=== PATIENT | male | born 1950 | race Caucasian/White ===

== ENCOUNTER 2017-12-13 16:31 | Inpatient (IN) | payer OTHER, SELFPAY ==
[2017-12-13] VITALS (8 sets, daily range): BP systolic 111–123; BP diastolic 58–87; PULSE 71–90; RESP 12–18; TEMP 36.8; O2SAT 94–98; BMI 22.3; BMI 20.9
--- NOTE | 2017-12-13 16:50 | EKG12_ITS ---
Test Reason : GENERAL ILLNESS Blood Pressure : / mmHG Vent. Rate : 074 BPM Atrial Rate : 074 BPM P-R Int : 194 ms QRS Dur : 096 ms QT Int : 396 ms P-R-T Axes : 066 -28 041 degrees QTc Int : 439 ms Normal sinus rhythm Normal ECG Confirmed by TAYA HANEY, MARKUS ([id number]), photography editor PAVITHRA ZAMORA ([id number]) on 12/16/2017 1:56:22 PM Referred By: VIANEY Confirmed By:MARKUS BAIN MD
--- NOTE | 2017-12-13 16:50 | RAD_ITS ---
STUDY: X-RAY CHEST REASON FOR EXAM: Male, 67 years old. Flulike symptoms. TECHNIQUE: Frontal and lateral views of the chest. COMPARISON: None. FINDINGS: The lungs are hyperexpanded. There are coarsened interstitial markings suggestive of mild chronic fibrosis. Multifocal infiltrates seen in the left lower lung zones. No gross effusions. Normal size heart. Normal mediastinum and kale. Normal visualized pulmonary arteries. Normal visualized aortic arch and descending thoracic aorta. Normal visualized thoracic spine. Normal visualized ribs, clavicles, and shoulders. There is no demonstrated abnormality of the visualized soft tissue structures of the upper abdomen. RAD/Chest PA and Lateral IMPRESSION: COPD with mild fibrosis. Infiltrates in the lower left lung. Electronically Signed: En Serrano MD at 17:42 EDT , Service support ,
--- NOTE | 2017-12-13 16:51 | ED.VISSUMM ---
- ER Visit Summary Date of Service: 12/13/17 Chief Complaint: Weakness History of Present Illness: The patient is a 67 M who states that about 1-1/2 weeks ago he got sick with the flu. He states he woke with a sore throat, feeling run down, and generalized body aches. He developed fever. Denies any vomiting or diarrhea. He states he has not had a bowel movement for several days but states he has not been eating anything. He states he feels somewhat short of breath particularly with exertion. He notes a slight cough but is not coughing anything up. He notes no rashes. No recent insect bites. Denies any headache. He notes dark urine. He denies any significant medical problems and is currently undergoing treatment for. He has had prior appendectomy, cholecystectomy, inguinal hernia ?2, and a hiatal hernia surgery. He sees Lizzie Robison for primary care Physical Examination: Afebrile vital signs are stable Gen: Well-nourished well-developed patient appears weak and ill. Head: Normocephalic atraumatic Eyes: Perrl EOMI ENT: TMs clear no rhinorrhea moist mucous membranes Neck: Supple no lymphadenopathy no JVD nontender CVS: Regular rate rhythm no murmurs normal S1-S2 Respiratory: No distress clear to auscultation bilaterally chest nontender Abdomen: Soft nontender nondistended normal bowel sounds no masses Back: Nontender Extremity: Nontender no edema Skin: Normal color no rash skin turgor Neuro: alert orientated ?3 CN II-XII intact normal strength sensation Psych: Normal affect normal mood Test Results: Labs look surprisingly well for the patient. Chest x-ray is consistent with a left lower lobe infiltrate. CT the abdomen pelvis demonstrated moderate stool. There was an enlarged adrenal gland. Emergency Department Course and Treatment: Lab and radiologic findings were discussed with family. He is received IV fluids Rocephin and azithromycin were given after blood cultures. Patient appears quite ill despite fairly normal laboratory studies. Her plan will be admission to the hospital. Impression: 1. Pneumonia 2. Constipation 3. Enlarged adrenal gland This note was generated with [employer] dictation software. It may contain incorrect words, spelling, and punctuation that were not noted in review of the chart prior to signing ED Disposition - Plan for ED Patient: Disposition: Acute Care [facility] Chief Complaint: General Illness
[2017-12-13] MEDS: 0.9% Normal Saline 1,000 ML 1000 ML IV (17:16)
[2017-12-13 17:19] LABS: Absolute Lymphocyte Count 0.88 X10^3/ul (0.83-4.51); Absolute Neutrophil Count 7.3 X10^3/uL (2.0-7.7); Basophil# 0.01 X10^3/uL; Basophil% 0.1 % (0-1); Eosinophil# 0.03 X10^3/uL; Eosinophils% 0.3 % (0-5); Hematocrit 37.8 % (40-54); Hemoglobin 13.2 g/dl (13.0-16.5); Lymphocyte # 0.88 X10^3/ul (4.0); Lymphocyte % 9.7 % (19-41); Mean Corp Hgb Conc 34.9 g/gl (32-36); Mean Corpuscular Hgb 31.1 pg (27.0-32.0); Mean Corpuscular Volume 88.9 fL (80-94); Monocyte# 0.85 X10^3/uL; Monocyte% 9.4 % (0-10); Neutrophil # 7.27 X10^3/uL (2.7-7.7); Neutrophil % 80.3 % (47-70); Platelet Count 281 K/mm3 (150-450); RBC Distribution Width CV 13.5 % (11.6-14.6); RBC Distribution Width SD 43.8 fl (35.1-43.9); Red Blood Count 4.25 M/mm3 (4.6-6.2); White Blood Count 9.1 K/mm3 (4.4-11.0)
[2017-12-13 17:24] LABS: POSITIVE COUNT NO; POSITIVE DIFFERENTIAL NO; POSITIVE MORPHOLOGY NO
[2017-12-13 17:28] LABS: International Normalized Ratio 1.3; Prothrombin Time (Protime)PT. 15.8 SECONDS (11.7-14.9)
[2017-12-13] MEDS: Ondansetron 4 MG/2 ML Vial IV (17:48)
[2017-12-13] MEDS: Morphine 2 MG/ML Syringe IV (17:48)
--- NOTE | 2017-12-13 17:49 | ED.RN ---
attempted to use urinal but unable at this time
[2017-12-13 17:51] LABS: Lactic Acid 1.1 mmol/L (0.4-2.0)
--- NOTE | 2017-12-13 18:05 | CT_ITS ---
STUDY: CT ABDOMEN AND PELVIS WITH CONTRAST REASON FOR EXAM: Male, 67 years old. Weakness and abdominal pain. Abnormal chest x-ray. RADIATION DOSAGE (If Supplied By Facility): CTDIvol = ( 8.34 ) mGy, DLP = ( 680.40 ) mGycm TECHNIQUE: Transaxial images were obtained from the dome of the diaphragm to the symphysis pubis without oral contrast. 100mL ml of Isovue 300 contrast was administered. Sagittal and coronal images were reconstructed. Individualized dose optimization techniques were used for this CT. COMPARISON: Chest x-ray of the same day. FINDINGS: Limited views through the lower chest show prominent infiltrate in the left lower lobe consistent with pneumonia. Normal shape and size of the liver. 1.4 cm cyst or hemangioma along the inferior edge of the right lobe. There are surgical clips in the gallbladder fossa consistent with a prior cholecystectomy. Normal spleen. Normal pancreas. Normal right adrenal gland. Left adrenal gland has a relatively low density 4 cm mass. No acute abnormalities of the kidneys. Right kidney has a 4 mm lower pole nonobstructing stone. There is also a 2 mm nonobstructing lower pole stone. Left kidney a 2 mm nonobstructing lower pole stone. Evaluation of the GI tract is limited by absence of oral contrast. Cannot exclude stomach wall thickening. No dilated loops of bowel or evidence for obstruction. Cannot exclude segmental thickening of the marte of the small or large bowel. Cannot exclude enteritis or colitis. Moderate to marked diffuse fecal retention. Diverticulosis without definite diverticulitis. Status post appendectomy. Normal abdominal aorta. Normal inferior vena cava. Normal retroperitoneum. Normal urinary bladder. There is enlargement of the prostate gland. Normal abdominal wall. Degenerative changes of the disc at L4-L5 and otherwise negative osseous structures. CT/Abdomen/Pelvis W IV Cont ONLY IMPRESSION: Left lower lobe infiltrate. Enlarged left adrenal gland. Neoplasm not excluded. Suggest MRI with contrast and out of phase imaging. Bilateral nonobstructing renal stones. Moderate to marked fecal retention. Electronically Signed: En Serrano MD at 18:58 EDT , Service support ,
[2017-12-13 18:06] LABS: ALB/GLOB Ratio 0.6 RATIO (0.9-2.4); AST(SGOT) 62 U/L (15-37); Alanine Aminotransfer ALT/SGPT 77 U/L (16-61); Albumin, Serum 2.6 g/dL (3.2-5.0); Alkaline Phosphatase 92 U/L (45-117); Anion Gap 10 (5-15); BUN 15 mg/dL (7-18); BUN/Creat Ratio 20.5 RATIO (10-20); Calcium,Total 8.4 mg/dL (8.5-10.1); Chloride 97 mmol/L (98-107); Creatinine, Serum 0.73 mg/dL (0.70-1.30); EST Glomerular Filtration Rate 114 mL/min (>60); Est Glom Filt Rate - Afr Amer 137 mL/min (>60); Estimated Creatinine Clearance 73.58 ml/min; Globulin 4.6 g/dL (2.2-4.2); Glucose 119 mg/dL (74-106); Lipase 184 U/L (73-393); Potassium 3.4 mmol/L (3.5-5.1); Protein, Total 7.2 g/dL (6.4-8.2); Sodium Level 132 mmol/L (136-145)
[2017-12-13] MEDS: Ipratropium/Albuterol Sulfate 3 ML AMPUL.NEB INHALATION (18:30)
[2017-12-13] MEDS: 0.9% Normal Saline 1,000 ML 150 ML IV (19:34)
--- NOTE | 2017-12-13 19:47 | PCM.HP.STD ---
Problem List (1) COPD (chronic obstructive pulmonary disease) Status: Suspected Qualifiers: COPD type: unspecified COPD Qualified Code(s): J44.9 - Chronic obstructive pulmonary disease, unspecified (2) Pneumonia Status: Acute Qualifiers: Pneumonia type: due to unspecified organism Laterality: left Lung location: lower lobe of lung Qualified Code(s): J18.1 - Lobar pneumonia, unspecified organism (3) COPD exacerbation Status: Acute (4) Chewing tobacco use Status: Chronic History of Present Illness Date of Admission: 12/13/17 Chief Complaint: Weakness, Dyspnea, Cough The patient is a 67 y/o Gonzalo M w/ no prior noted PMHx although image noted possible Chronic COPD changes who presents to the [facility] ED on 12/13/17 with history of awakening ~ 1-1.5 weeks prior with sore throat, non-productive cough, malaise w/ progressively worsening weakness, poor intake with PCP evaluation but no improvement and therefore presentation to the ED. He noted associated fevers, chills, nausea without emesis. He additionally notes abdominal discomfort and pain over the last ~2-3 days with decreased BS, last ~3 days prior, normally he goes daily. In the ED work-up included T 98.2, HR 70-80s, BP 119/67, RR 16, 94% on RA, CBC w/ WBC 9.1, Hgb 13.2, Plts 281 without marked shift, coags w/ PT 15.8, INR 1.3, PTT 38, CMP w/ Na 132, K 3.4, Chl 97, glucose 119, LA 1.1, AST/ALT 62/77, trop < 0.02, unremarkable rapid influenza, pending Bld Cx x 2, CXR w/ Chronic COPD and fibrotic change, infiltrates LLL, CT A/P w/ LLL infiltrate, enlarged L adrenal gland, neoplasm not excluded, BL nonobstructing renal stones, moderate to marked fecal retention. In the ED medications given NS, morphine, zofran, rocephin, azithromycin, duoneb. Past Medical History Past Medical History (Chronic Problems): Chronic Problems Chewing tobacco use (Chronic) Allergies No Known Allergies Allergy (Verified 12/13/17 16:34) Home Medications: Ambulatory Orders Medication Instructions Recorded NK [NK] 12/13/17 Surgical History: - - Appendectomy, Cholecystectomy, Inguinal Hernia x 2, Hiatal Hernia repair Psychiatric History: No pertinent psych hx Lives: With Family Smoking Status: Former smoker Tobacco Use: - - Former chew tobacco use, quit 2006. Alcohol: None Drugs: None - *Family History Maternal History Items: No pertinent history - Patient denies any marked maternal or paternal family history of hypertension, heart disease, diabetes, cancer. Paternal History Items: No pertinent history - Patient denies any marked maternal or paternal family history of hypertension, heart disease, diabetes, cancer. Sibling History Items: Diabetes - Sister with history of diabetes. Review of Systems Constitutional: Reports: Anorexia, Chills, Fever, Malaise, Weakness, Fatigue. Denies: Weight Change HEENT: Denies: Head Aches, Sinus Congestion, Sinus Drainage Cardiovascular: Denies: Chest Pain, Palpitations Respiratory: Reports: Cough, Shortness of Breath, Shortness of breath at rest, Shortness of breath upon exertion. Denies: Sputum production Gastrointestinal: Reports: Abdominal Pain, Constipation. Denies: Nausea, Vomiting Genitourinary: Denies: Dysuria Musculoskeletal: Denies: Joint Pain, Joint Tenderness Skin: Denies: Rash, Wounds Neurological: Denies: Numbness, Tingling, Focal weakness Psychiatric: Denies: Anxiety, Depression, Homicidal Ideations, Suicidal Ideations Hematologic/ Lymphatic: Denies: Easy Bruising, Easy Bleeding VTE Information - Inpt Only VTE Present on Admission: No VTE Mechan Device Prophylaxis: SCD's VTE Pharm Prophylaxis ordered?: Yes Patient Problems: Active and Suspected Problems COPD (chronic obstructive pulmonary disease) (Suspected) Pneumonia (Acute) COPD exacerbation (Acute) Subjective: Seated upright in the ED bed, fatigued appearance, ill-appearing. Objective: Physical Examination: General: awake, alert, oriented x 3 and cooperative, seated upright in the ED bed in no apparent distress. Skin: normal color, poor skin turgor, no icterus, cyanosis. HEENT: AT/NC, EOMI, PERRLA, dry MM, no carotid bruits or JVD noted. Lungs: Diminished breath sounds diffusely, greater bilateral bases, greater left, mild effort, no rales, ronchi or wheezing. Heart: Regular rate and rhythm; no gallop, rub audible. Abdomen: soft, thin habitus, NTTP, ND, normal BS, no HSM. Extremities: no cyanosis, clubbing, or edema. Neurological: patient awake, alert, oriented x 3; cognitive function intact; pupils equally reactive to light and accomodation; cranial nerves II-XII grossly normal, moving all 4 extremities, no focal deficits, strength moderately to severely globally decreased secondary to acute presentation. Psychiatric: affect appears flat, fatigued, no acute evidence of depressive or anxiety feelings. - Physical Exam Vital Signs Temp Pulse Resp BP Pulse Ox 98.2 F 83 12 114/58 L 95 12/13/17 16:31 12/13/17 18:51 12/13/17 18:51 12/13/17 18:51 12/13/17 18:51 Oxygen Delivery Method Room Air Weight: 160 lb Body Mass Index (BMI) 22.3 Microbiology Past 72 Hours 12/13/17 17:00 Influenza Types A,B Direct FA (AMENA) - Final Mucosa - Nose Laboratory Tests Past 24 Hrs 12/13/17 12/13/17 12/13/17 17:00 17:00 17:00 WBC 9.1 RBC 4.25 L Hgb 13.2 Hct 37.8 L MCV 88.9 MCH 31.1 MCHC 34.9 RDW 13.5 RDW Differential 43.8 Plt Count 281 MPV 9.0 Immature Gran % (Auto) 0.200 Neut % (Auto) 80.3 H Lymph % (Auto) 9.7 L [place] % (Auto) 9.4 Eos % (Auto) 0.3 Baso % (Auto) 0.1 Absolute Neuts (auto) 7.3 Absolute Lymphs (auto) 0.88 Total Counted Not Reportable PT 15.8 H INR 1.3 APTT 38.0 H Sodium 132 L Potassium 3.4 L Chloride 97 L Carbon Dioxide 25.0 Anion Gap 10 BUN 15 Creatinine 0.73 Estim Creat Clear Calc 73.58 Est GFR (MDRD) Af Amer 137 Est GFR (MDRD) Non-Af 114 BUN/Creatinine Ratio 20.5 H Glucose 119 H Lactic Acid Calcium 8.4 L Total Bilirubin 0.60 AST 62 H ALT 77 H Alkaline Phosphatase 92 Troponin I < 0.02 Total Protein 7.2 Albumin 2.6 L Globulin 4.6 H Albumin/Globulin Ratio 0.6 L Lipase 184 12/13/17 17:00 WBC RBC Hgb Hct MCV MCH MCHC RDW RDW Differential Plt Count MPV Immature Gran % (Auto) Neut % (Auto) Lymph % (Auto) [place] % (Auto) Eos % (Auto) Baso % (Auto) Absolute Neuts (auto) Absolute Lymphs (auto) Total Counted PT INR APTT Sodium Potassium Chloride Carbon Dioxide Anion Gap BUN Creatinine Estim Creat Clear Calc Est GFR (MDRD) Af Amer Est GFR (MDRD) Non-Af BUN/Creatinine Ratio Glucose Lactic Acid 1.1 Calcium Total Bilirubin AST ALT Alkaline Phosphatase Troponin I Total Protein Albumin Globulin Albumin/Globulin Ratio Lipase Assessment/Plan Active and Suspected Problems COPD (chronic obstructive pulmonary disease) (Suspected) Pneumonia (Acute) COPD exacerbation (Acute) The patient is a 67 y/o Gonzalo M w/ no prior noted PMHx although image noted possible Chronic COPD changes who presents to the [facility] ED on 12/13/17 with history of awakening ~ 1-1.5 weeks prior with sore throat, non-productive cough, malaise w/ progressively worsening weakness, poor intake with PCP evaluation but no improvement and therefore presentation to the ED. (1) Community Acquired Pneumonia: CXR in the ED w/ Chronic COPD and fibrotic change, infiltrates LLL. Admission CBC w/ WBC 9.1 without marked shift. Afebrile. Will admit to [facility], maintain on oxygen with wean as tolerated to room air, continue ATC duonebs, PRN albuterol, maintained on IV Rocephin and Azithromycin, HOB, IS parameters w/ pending sputum cultures and urine antigens. Bld cx x 2 obtained in the ED. Obtain respiratory viral panel. (2) Hyponatremia, hypovolemic: Secondary to poor oral intake, evidence dehydration, will administer an additional 1 L normal saline bolus and continue maintenance IV fluids, repeat CMP in a.m. (3) Hypokalemia: Admission K+ 3.4, supplementation given, repeat level in AM. (4) Constipation, Acute: Likely secondary to recent poor intake, dehydration, aggressively hydrating, bowel regimen. (5) Elevated liver enzymes: AST/ALT 62/77, unclear if acute or chronic elevation, mild, hydrating as noted, repeat CMP in a.m. (6) ? Chronic COPD: Chronic changes noted on CXR. Will maintain on oxygen with wean as tolerated to room air, continue ATC duonebs, PRN albuterol, HOB, IS parameters. (7) Former Chew Tobacco: Quit 2006, encouraged continued cessation. (8) GERD: Famotidine. (9) DVT Prophylaxis: SCDs, lovenox. Code Visit Inpatient E&M: 07048 Init Hosp L2
[2017-12-13] MEDS: 0.9% Normal Saline 1,000 ML 999 ML IV (21:10)
[2017-12-13 21:17] LABS: Magnesium 2.2 mg/dL (1.6-2.6)
[2017-12-13] MEDS: 0.9% Normal Saline 1,000 ML 125 ML IV (22:41)
[2017-12-13 23:56] LABS: Bacteria 0 SEEN /hpf (None Seen); Mucous, Urine 0 SEEN /hpf (<or=2+); Squamous Epithelial Cells - UA 0 SEEN /hpf (0-5)
[2017-12-14] VITALS (8 sets, daily range): BP systolic 103–126; BP diastolic 61–77; PULSE 62–89; RESP 16–18; TEMP 36.2–36.8; O2SAT 95–98
[2017-12-14 00:06] LABS: Color, Urine Yellow (Yellow); Glucose, Dipstick Normal (Normal); Ketone-Dipstick 5 mg/dl (Negative); Leukocyte Esterase-Dipstick Negative /ul (Negative); Nitrite-Dipstick Negative (Negative); Occult Blood-Urine 50 /ul (Negative); Protein-Dipstick 30 mg/dl (Negative); Specific Gravity, Urine 1.015 (1.002-1.030); Urine Bilirubin Dipstick Negative (Negative); Urine Clarity Clear (Clear); Urine Urobilinogen 4 mg/dl (Normal)
[2017-12-14 00:15] LABS: Red Blood Cells-Urine 0-5 SEEN /hpf (0-5); White Blood Cells 0-5 SEEN /hpf (0-5)
[2017-12-14] MEDS: 0.9% NaCl Peripheral Flush Adult/Peds IV ×2 (02:00→21:14)
[2017-12-14] MEDS: Morphine 4 MG/ML Syringe IV ×2 (02:00→21:13)
[2017-12-14 05:40] LABS: Absolute Lymphocyte Count 1.14 X10^3/ul (0.83-4.51); Absolute Neutrophil Count 3.7 X10^3/uL (2.0-7.7); Basophil# 0.01 X10^3/uL; Basophil% 0.2 % (0-1); Eosinophil# 0.09 X10^3/uL; Eosinophils% 1.6 % (0-5); Hematocrit 33.2 % (40-54); Hemoglobin 11.5 g/dl (13.0-16.5); Lymphocyte # 1.14 X10^3/ul (4.0); Lymphocyte % 20.1 % (19-41); Mean Corp Hgb Conc 34.6 g/gl (32-36); Mean Corpuscular Hgb 31.9 pg (27.0-32.0); Mean Corpuscular Volume 92.2 fL (80-94); Mean Platelet Vol. 9.1 fl (6.2-12.0); Monocyte# 0.71 X10^3/uL; Monocyte% 12.5 % (0-10); Neutrophil # 3.69 X10^3/uL (2.7-7.7); Neutrophil % 65.1 % (47-70); Platelet Count 296 K/mm3 (150-450); RBC Distribution Width CV 13.5 % (11.6-14.6); RBC Distribution Width SD 44.6 fl (35.1-43.9); White Blood Count 5.7 K/mm3 (4.4-11.0)
[2017-12-14 05:46] LABS: POSITIVE COUNT NO; POSITIVE DIFFERENTIAL NO; POSITIVE MORPHOLOGY NO
[2017-12-14 05:58] LABS: ALB/GLOB Ratio 0.6 RATIO (0.9-2.4); AST(SGOT) 46 U/L (15-37); Alanine Aminotransfer ALT/SGPT 58 U/L (16-61); Albumin, Serum 2.1 g/dL (3.2-5.0); Alkaline Phosphatase 77 U/L (45-117); Anion Gap 8 (5-15); BUN 10 mg/dL (7-18); BUN/Creat Ratio 15.5 RATIO (10-20); Calcium,Total 7.8 mg/dL (8.5-10.1); Chloride 102 mmol/L (98-107); Creatinine, Serum 0.65 mg/dL (0.70-1.30); EST Glomerular Filtration Rate 131 mL/min (>60); Est Glom Filt Rate - Afr Amer 158 mL/min (>60); Estimated Creatinine Clearance 69.25 ml/min; Globulin 3.8 g/dL (2.2-4.2); Glucose 92 mg/dL (74-106); Potassium 3.7 mmol/L (3.5-5.1); Protein, Total 5.9 g/dL (6.4-8.2); Sodium Level 138 mmol/L (136-145)
[2017-12-14] MEDS: 0.9% Normal Saline 1,000 ML 125 ML IV (06:13)
--- NOTE | 2017-12-14 07:30 | PCM.PROGNOTE ---
Patient Problems: Active and Suspected Problems COPD (chronic obstructive pulmonary disease) (Suspected) Pneumonia (Acute) COPD exacerbation (Acute) Subjective: Patient is a 67-year-old male with no significant past medical history other than tobacco dependence in the past who presented to the emergency room at [facility] on 12/13/2017 complaining of weakness, shortness of breath and cough. 7-10 days prior to presentation to the emergency room he developed sore throat, nonproductive cough, malaise and progressively worsening weakness. He had developed fevers, chills and nausea with no emesis. He also had abdominal discomfort. Vital signs at presentation to the emergency room were temperature 98.2, heart rate 70-80s, blood pressure 119/67, respiratory rate 16 and he was 94% saturated on room air. White blood cell count was 9.1 and the hemoglobin and platelets were normal. Sodium was low at 132 and the potassium was low at 3.4. AST and ALT were mildly increased at 62 and 77 respectively. Troponin was less than 0.02. Reticulocyte acid was 1.1. Lipase was within normal limits. UA had 0-5 WBCs with no bacteria. Chest x-ray showed left lower lobe pneumonia and hyperexpansion. CT scan of the abdomen and pelvis showed an enlarged left adrenal gland, bilateral nonobstructing renal stones, diverticulosis and moderate to marked fecal retention. Legionella and streptococcal antigens in the urine were negative. Influenza swab was negative. Respiratory panel is pending. Blood cultures are also pending. He was admitted to the hospital with a diagnosis of community-acquired pneumonia and started on ceftriaxone and azithromycin. Had been sick for 2 weeks prior to coming to the hospital has lost 15 lbs in the past 2 weeks Feeling a little better today Has not had a BM in several days Denies N/V He mostly complains of severe fatigue today - Physical Exam General: Alert, Oriented x3, Cooperative, - - He has dark circles under the eyes and and looks pale and very tired HEENT: Atraumatic, PERRLA, EOMI, Normocephalic Oral: Dry Mucosa Neck: Supple, No JVD, No Nodes, Trachea Midline, - - lying flat in bed with no tachypnea and no conversational dyspnea, there is symmetric chest expansion Lungs: Clear to auscultation, No rhonchi, No wheeze, No rales, Diminished - karrie in the left base Cardiovascular: Regular rate, Regular Rhythm, Normal S1, Normal S2, No murmurs, No Ectopic Activity, No rub noted, No Gallop Abdomen: Bowel Sounds Present, Soft, Non-Distended, Tender - diffusely, - - No guarding with palpation Extremities: No clubbing, No cyanosis, No edema, No Calf Tenderness, Peripheral Pulses Normal Skin: No rashes, No breakdown Musculoskeletal: No Muscle Wasting Neurological: Cranial nerves II-XII grossly intact, Neuro grossly intact Psych/Mental Status: Normal Affect, Appropriate Vital Signs Temp Pulse Resp BP Pulse Ox 98 F 79 16 109/61 98 12/14/17 03:06 12/14/17 03:06 12/14/17 03:06 12/14/17 03:06 12/14/17 03:06 Oxygen Delivery Method Room Air Weight: 150 lb 9.211 oz Body Mass Index (BMI) 20.9 Intake and Output for Last 24 Hours 12/12/17 12/13/17 12/14/17 23:59 23:59 23:59 Intake Total 1000 / 1000 1710 / 1710 Balance 1000 / 1000 1710 / 1710 Microbiology Past 72 Hours 12/13/17 23:50 Legionella Antigen - Final Urine, Clean Catch 12/13/17 23:50 Streptococcus pneumoniae Antigen (M - Final Urine, Clean Catch 12/13/17 21:30 Gram Stain - Preliminary Sputum, Expectorated/Coughed Laboratory Tests Past 24 Hrs 12/13/17 12/14/17 12/14/17 23:50 05:18 05:18 WBC 5.7 RBC 3.60 L Hgb 11.5 L Hct 33.2 L MCV 92.2 MCH 31.9 MCHC 34.6 RDW 13.5 RDW Differential 44.6 H Plt Count 296 MPV 9.1 Immature Gran % (Auto) 0.500 Neut % (Auto) 65.1 Lymph % (Auto) 20.1 [place] % (Auto) 12.5 H Eos % (Auto) 1.6 Baso % (Auto) 0.2 Absolute Neuts (auto) 3.7 Absolute Lymphs (auto) 1.14 Total Counted Not Reportable Sodium 138 Potassium 3.7 Chloride 102 Carbon Dioxide 28.0 Anion Gap 8 BUN 10 Creatinine 0.65 L Estim Creat Clear Calc 69.25 Est GFR (MDRD) Af Amer 158 Est GFR (MDRD) Non-Af 131 BUN/Creatinine Ratio 15.5 Glucose 92 Calcium 7.8 L Total Bilirubin 0.30 AST 46 H ALT 58 Alkaline Phosphatase 77 Total Protein 5.9 L Albumin 2.1 L Globulin 3.8 Albumin/Globulin Ratio 0.6 L Urine Color Yellow Urine Clarity Clear Urine pH 6.0 Ur Specific [place] 1.015 Urine Protein 30 H Urine Glucose (UA) Normal Urine Ketones 5 H Urine Occult Blood 50 H Urine Nitrite Negative Urine Bilirubin Negative Urine Urobilinogen 4 H Ur Leukocyte Esterase Negative Urine RBC 0-5 SEEN Urine WBC 0-5 SEEN Ur Squamous Epith Cells 0 SEEN Urine Bacteria 0 SEEN Urine Mucus 0 SEEN Medical Necessity - Tobacco Use Smoking Status: Former smoker Tobacco Use: - - Former chew tobacco use, quit 2006. Assessment/Plan Active and Suspected Problems COPD (chronic obstructive pulmonary disease) (Suspected) Pneumonia (Acute) COPD exacerbation (Acute) Impressions 1. Community-acquired pneumonia 2. Hyponatremia-resolved with IV fluids 3. Hypokalemia-resolved 4. Dehydration 5. Severe constipation 6. Abnormal LFTs-improved with hydration 7. Suspected COPD-he is a non-smoker does use chewing tobacco. Never had PFTs. 8. Enlarged left adrenal gland-possible adrenal hyperplasia, cannot rule out malignancy MRI of the adrenal glands tomorrow ? whether the LLL PNA is post obstructive..... He has been afebrile since admission and the white blood cell count is normal today with a normal differential. the sputum GM stain has only 1+ WBC's and the respiratory panel is negative. HGB following hydration is 11.5......no colonoscopy for at least 10 years. Will check a CT scan of the chest. Check lab in the a.m. Code Visit Inpatient E&M: 44904 Subs Hosp L2
[2017-12-14] MEDS: Ceftriaxone 1 GM/50 ML BAG IV (09:25)
[2017-12-14] MEDS: Enoxaparin 40 MG/0.4 ML Syringe SC (09:31)
[2017-12-14] MEDS: Bisacodyl 5 MG Tablet 10 MG PO (09:31)
[2017-12-14] MEDS: guaiFENesin 1,200 MG Tablet 1200 MG PO (09:31)
[2017-12-14] MEDS: Docusate Sodium 100 MG Capsule 200 MG PO (09:31)
[2017-12-14] MEDS: Famotidine 20 MG Tablet PO (09:31)
[2017-12-14] MEDS: Polyethylene Glycol 3350 17 GM PACKET PO (09:31)
--- NOTE | 2017-12-14 10:30 | CASEMGMT ---
RN CONSTANCE Face to Face with patient for initial transition planning/care coordination assessment. RN CM introduced self and role at [facility]. Patient lying in bed, alert and oriented, at bedside. Patient willing to participate in assessment and is able to answer all questions appropriately. Care providers, pharmacy, and demographics verified. See link attached. Patient wishes to discharge home, denies needs at this time. Patient states he has no further needs or concerns at this time. CM to follow for discharge planning needs that may arise. Disposition Plan: Patient to discharge home with family support and follow-up plans in place.
[2017-12-14] MEDS: Magnesium Hydroxide 30 ML UDC PO (14:59)
[2017-12-14] MEDS: Ipratropium/Albuterol Sulfate 3 ML AMPUL.NEB INHALATION (19:47)
--- NOTE | 2017-12-14 20:16 | NURSING ---
Patient c/o abd pain and cramps and nausea yet denies any intervetion for it and wants to wait. Will continue to monitor.
[2017-12-14] MEDS: Ondansetron 4 MG/2 ML Vial IV (21:13)
--- NOTE | 2017-12-15 00:03 | NURSING ---
Patient has had multiple very small BM's this shift.
[2017-12-15 03:00] VITALS: BP 113/71; PULSE 95; RESP 16; TEMP 36.8; O2SAT 94
[2017-12-15] MEDS: 0.9% Normal Saline 1,000 ML 75 ML IV ×2 (05:16→11:00)
--- NOTE | 2017-12-15 05:55 | MRI_ITS ---
STUDY: MRI ABDOMEN WITH AND WITHOUT CONTRAST REASON FOR EXAM: Male, [address] Enlarged adrenal gland. TECHNIQUE: Standardized fat and water weighted pulse sequences were obtained in all 3 orthogonal planes post contrast administration. 7 ml of Gadavist contrast material was administered intravenously for the contrast portion of the examination. COMPARISON: CT December 13, 2017. FINDINGS: There is consolidation in the left lower lung The visualized portions of the heart are within normal limits. There is abnormal diminished signal in the anterior abdomen consistent with moderately large pneumoperitoneum Normal liver. There are surgical clips in the gallbladder fossa consistent with a prior cholecystectomy. Normal spleen. Normal pancreas. There is a well circumscribed, round mass lesion of the left adrenal gland with hyperintense signal on the T1W1 gradient-echo in phase images as compared to the spleen with signal loss on the T1W1 gradient-echo opposed phase images consistent with a lipid rich adrenal adenoma. Normal right kidney. Normal left kidney. Wall thickening suggesting postoperative change at the gastroesophageal junction. Normal small intestine. Normal colon. There is non-visualization of the appendix. Normal abdominal aorta. Normal inferior vena cava. Normal retroperitoneum. Normal abdominal wall. Normal osseous structures. MRI/MRI Abd WITH and W/O Contrast IMPRESSION: Left adrenal mass with decreased signal on out of phase sequences consistent with adenoma Pneumoperitoneum with bowel perforation versus recent surgery. Left lower lung airspace consolidation. N.B. : The above information has been verbally conveyed by Bang Garza MD to Ines Erickson [facility]- In-Patient RN, on 12/15/2017 14:55:16 (ET). Electronically Signed: Bang Garza MD at 14:27 EDT , Service support , N.B. : The above information has been verbally conveyed by Bang Garza MD to Ines Erickson [facility]- In-Patient RN, on 12/15/2017 14:55:16 (ET).
[2017-12-15 06:06] LABS: Hematocrit 33.5 % (40-54); Hemoglobin 11.4 g/dl (13.0-16.5); Mean Corpuscular Hgb 31.8 pg (27.0-32.0); Mean Corpuscular Volume 93.6 fL (80-94); Mean Platelet Vol. 9.1 fl (6.2-12.0); Platelet Count 395 K/mm3 (150-450); RBC Distribution Width CV 13.9 % (11.6-14.6); RBC Distribution Width SD 45.7 fl (35.1-43.9); Red Blood Count 3.58 M/mm3 (4.6-6.2); White Blood Count 13.2 K/mm3 (4.4-11.0)
[2017-12-15 06:08] LABS: Scan Indicated on CBC? Y/N NO
[2017-12-15 06:28] LABS: Anion Gap 5 (5-15); BUN 10 mg/dL (7-18); Calcium,Total 7.8 mg/dL (8.5-10.1); Chloride 105 mmol/L (98-107); Creatinine, Serum 0.71 mg/dL (0.70-1.30); EST Glomerular Filtration Rate 117 mL/min (>60); Est Glom Filt Rate - Afr Amer 142 mL/min (>60); Estimated Creatinine Clearance 69.25 ml/min; Glucose 123 mg/dL (74-106); Potassium 3.4 mmol/L (3.5-5.1); Sodium Level 138 mmol/L (136-145)
[2017-12-15 07:03] VITALS: PULSE 78; RESP 16; O2SAT 96
[2017-12-15] MEDS: Ipratropium/Albuterol Sulfate 3 ML AMPUL.NEB INHALATION ×2 (07:03→13:32)
--- NOTE | 2017-12-15 08:30 | PCM.PROGNOTE ---
Patient Problems: Active and Suspected Problems COPD (chronic obstructive pulmonary disease) (Suspected) Pneumonia (Acute) COPD exacerbation (Acute) Subjective: Afebrile since admission. Vital signs are stable. He is 94-98% saturated on room air. He took 1500 cc orally yesterday. White blood cell count today is 13.2 (increased from 5.7 on 12/14/2017.) Hemoglobin is stable at 11.4 and platelets are within normal limits. Electrolytes are unremarkable with the exception of a mildly decreased potassium at 3.4. Sputum Gram stain shows 1+ white blood cells. Preliminary culture report is appears to be normal respiratory satinder. MRI of the Abdomen today with attention to the left adrenal gland and CT scan of the chest-ordered for today through the night he had severe lower abdominal pain and nausea. He did not vomit but felt as though he was going to. He continues to c/o severe abdominal pain. Denies SOB and is not coughing. No CP. Objective: - Physical Exam General: Alert, Oriented x3, Cooperative, - - He has dark circles under the eyes. His color is better today...he appears to be in pain HEENT: Atraumatic, PERRLA, EOMI, Normocephalic Oral: Dry Mucosa Neck: Supple, No JVD, No Nodes, Trachea Midline, - - lying flat in bed with no tachypnea and no conversational dyspnea, There is symmetric chest expansion Lungs: Clear to auscultation, No rhonchi, No wheeze, No rales, Diminished - karrie in the left base....the BS's in the left bas are accentuated...likely due to consolidation Cardiovascular: Regular rate, Regular Rhythm, Normal S1, Normal S2, No murmurs, No Ectopic Activity, No rub noted, No Gallop Abdomen: diminished BS's today, not distended, he is voluntarily guarding today. No rebound. His is holding and rubbing the lower abdomen. He is passing flatus. Extremities: No clubbing, No cyanosis, No edema, No Calf Tenderness, Peripheral Pulses Normal Skin: No rashes, No breakdown Musculoskeletal: No Muscle Wasting Neurological: Cranial nerves II-XII grossly intact, Neuro grossly intact Psych/Mental Status: Normal Affect, Appropriate - Physical Exam Vital Signs Temp Pulse Resp BP Pulse Ox 98.3 F 95 16 113/71 94 12/15/17 03:00 05/10/18 03:00 12/15/17 03:00 12/15/17 03:00 12/15/17 03:00 Oxygen Delivery Method Room Air Weight: 150 lb 9.211 oz Body Mass Index (BMI) 20.9 Intake and Output for Last 24 Hours 12/13/17 12/14/17 12/15/17 23:59 23:59 23:59 Intake Total 1000 / 1000 6238 / 6238 417 / 417 Output Total 5 / 5 Balance 1000 / 1000 6233 / 6233 417 / 417 Microbiology Past 72 Hours 12/13/17 21:30 Gram Stain - Final Sputum, Expectorated/Coughed 12/13/17 23:05 Respiratory Panel (PCR) - Final Mucosa - Nasopharyngeal 12/13/17 23:50 Legionella Antigen - Final Urine, Clean Catch 12/13/17 23:50 Streptococcus pneumoniae Antigen (M - Final Urine, Clean Catch Laboratory Tests Past 24 Hrs 12/15/17 12/15/17 05:18 05:18 WBC 13.2 H RBC 3.58 L Hgb 11.4 L Hct 33.5 L MCV 93.6 MCH 31.8 MCHC 34.0 RDW 13.9 RDW Differential 45.7 H Plt Count 395 MPV 9.1 Sodium 138 Potassium 3.4 L Chloride 105 Carbon Dioxide 28.0 Anion Gap 5 BUN 10 Creatinine 0.71 Estim Creat Clear Calc 69.25 Est GFR (MDRD) Af Amer 142 Est GFR (MDRD) Non-Af 117 BUN/Creatinine Ratio 14.0 Glucose 123 H Calcium 7.8 L Medical Necessity - Tobacco Use Smoking Status: Former smoker Tobacco Use: - - Former chew tobacco use, quit 2006. Assessment/Plan Active and Suspected Problems COPD (chronic obstructive pulmonary disease) (Suspected) Pneumonia (Acute) COPD exacerbation (Acute) Impressions 1. Community-acquired pneumonia - I suspect this may not be the primary issue. He is not coughing and not SOB. The WBC yesterday and at admission are normal and even the diff was normal on 12/14 2. Hyponatremia-resolved with IV fluids 3. Hypokalemia-resolved 4. Dehydration - improved 5. Severe constipation - was given MOM yesterday and had 3 small BM's 6. Abnormal LFTs-improved with hydration 7. Suspected COPD-he is a non-smoker, does use chewing tobacco. Never had PFTs. diaphragms are flat and there is hyperexpansion. BS's are diminished 8. Enlarged left adrenal gland-possible adrenal hyperplasia, cannot rule out malignancy MRI of the abdomen/adrenal glands today to evaluate for left adrenal enlargement and also increased abdominal pain overnight ? whether the LLL PNA is post obstructive or secondary to bacteremia..... He has been afebrile since admission and the white blood cell count was normal the past 2 days. The sputum GM stain has only 1+ WBC's and the respiratory panel is negative. The preliminary on the sputum culture is normal respiratory satinder. HGB following hydration is 11.5......no colonoscopy for at least 10 years. Has never had an EGD. Will check a CT scan of the chest. ReCheck lab in the a.m. Code Visit Inpatient E&M: 97337 Subs Hosp L2
[2017-12-15 09:00] VITALS: BP 115/72; PULSE 87; RESP 16; RESP 18; TEMP 36.7; O2SAT 96
[2017-12-15] MEDS: Morphine 4 MG/ML Syringe IV ×3 (09:18→18:01)
[2017-12-15] MEDS: 0.9% NaCl Peripheral Flush Adult/Peds IV ×3 (09:19→18:01)
[2017-12-15] MEDS: Ceftriaxone 1 GM/50 ML BAG IV (11:40)
[2017-12-15] MEDS: guaiFENesin 1,200 MG Tablet 1200 MG PO (11:41)
[2017-12-15] MEDS: Polyethylene Glycol 3350 17 GM PACKET PO (11:41)
[2017-12-15] MEDS: Famotidine 20 MG Tablet PO (11:41)
[2017-12-15] MEDS: Enoxaparin 40 MG/0.4 ML Syringe SC (11:41)
[2017-12-15 13:32] VITALS: PULSE 80; RESP 16
--- NOTE | 2017-12-15 15:51 | PCM.CONS.GEN ---
Reason for Consult Date of Consultation: 12/15/17 Reason for Consultation: Pneumoperitoneum, thickening at the GE junction History of Present Illness: The patient is a 67 year old M admitted due to pneumonia yesterday. Patient states that he was having fevers and not feeling well and was not able to specify for about the last week. Denies any abdominal pain really during that time other than not feeling well all over. Patient states he did have colonoscopy about 10 years ago in [place] as well as an EGD. He also had a hiatal hernia repair in 2013 in [place] as well. Patient did have some constipation on a CT abdomen pelvis yesterday which only showed an adrenal nodule and they recommended an MRI. Patient was given some MiraLAX and did have some bowel movements and then later in the evening he did have some increased abdominal pain currently states it is a little bit better but does still have significant pain. Patient had an MRI done to evaluate the adrenal nodule and it did showed pneumoperitoneum along with some thickening at the GE junction. Patient's vital signs remained stable, afebrile currently, did have chills lastnight and he did have a leukocytosis this morning of 13.2. Past Medical History Past Medical History (Chronic Problems): Chronic Problems Chewing tobacco use (Chronic) Allergies No Known Allergies Allergy (Verified 12/13/17 16:34) Home Medications: Ambulatory Orders Medication Instructions Recorded NK [NK] 12/13/17 Surgical History: - - lap Appendectomy, lap Cholecystectomy, right Inguinal Hernia x 2, Hiatal Hernia repair in [place] 2013 Psychiatric History: No pertinent psych hx Lives: With Family Smoking Status: Former smoker Tobacco Use: - - Former chew tobacco use, quit 2006. Alcohol: None Drugs: None - *Family History Maternal History Items: No pertinent history - Patient denies any marked maternal or paternal family history of hypertension, heart disease, diabetes, cancer. Paternal History Items: No pertinent history - Patient denies any marked maternal or paternal family history of hypertension, heart disease, diabetes, cancer. Sibling History Items: Diabetes - Sister with history of diabetes. Review of Systems Constitutional: Denies: Chills, Fever Eyes: Denies: Blurred vision HEENT: Denies: Difficulty Hearing Cardiovascular: Denies: Chest Pain Respiratory: Reports: Shortness of Breath Gastrointestinal: Reports: Abdominal Pain Genitourinary: Denies: Dysuria Musculoskeletal: Reports: - - left kneed Skin: Denies: Rash Neurological: Denies: Numbness, Tingling Psychiatric: Denies: Anxiety, Depression Hematologic/ Lymphatic: Denies: Easy Bleeding Patient Problems: Active and Suspected Problems COPD (chronic obstructive pulmonary disease) (Suspected) Pneumonia (Acute) COPD exacerbation (Acute) - Physical Exam General: Alert, Oriented x3, Cooperative HEENT: Atraumatic, Normocephalic Lungs: Normal air movement Cardiovascular: Regular rate Abdomen: Distended - moderate, Tender, - - + rebound, voluntary guarding Extremities: No clubbing, No cyanosis, No edema Neurological: Cranial nerves II-XII grossly intact Psych/Mental Status: Normal Affect Vital Signs Temp Pulse Resp BP Pulse Ox 98.1 F 87 18 115/72 96 12/15/17 09:00 12/15/17 09:00 12/15/17 09:00 12/15/17 09:00 12/15/17 09:00 Oxygen Delivery Method Room Air Weight: 150 lb 9.211 oz Body Mass Index (BMI) 20.9 Intake and Output for Last 24 Hours 12/13/17 12/14/17 12/15/17 23:59 23:59 23:59 Intake Total 1000 / 1000 6238 / 6238 1067 / 1067 Output Total 5 / 5 Balance 1000 / 1000 6233 / 6233 1067 / 1067 Microbiology Past 72 Hours 12/13/17 21:30 Gram Stain - Final Sputum, Expectorated/Coughed Respiratory Culture - Preliminary Appears to be normal respiratory satinder. Further studies to follow. 12/13/17 23:05 Respiratory Panel (PCR) - Final Mucosa - Nasopharyngeal 12/13/17 23:50 Legionella Antigen - Final Urine, Clean Catch 12/13/17 23:50 Streptococcus pneumoniae Antigen (M - Final Urine, Clean Catch Laboratory Tests Past 24 Hrs 12/15/17 12/15/17 05:18 05:18 WBC 13.2 H RBC 3.58 L Hgb 11.4 L Hct 33.5 L MCV 93.6 MCH 31.8 MCHC 34.0 RDW 13.9 RDW Differential 45.7 H Plt Count 395 MPV 9.1 Sodium 138 Potassium 3.4 L Chloride 105 Carbon Dioxide 28.0 Anion Gap 5 BUN 10 Creatinine 0.71 Estim Creat Clear Calc 69.25 Est GFR (MDRD) Af Amer 142 Est GFR (MDRD) Non-Af 117 BUN/Creatinine Ratio 14.0 Glucose 123 H Calcium 7.8 L Assessment/Plan Active and Suspected Problems COPD (chronic obstructive pulmonary disease) (Suspected) Pneumonia (Acute) COPD exacerbation (Acute) 67-year-old male with pneumoperitoneum and thickening at the GE junction 1. Recommend transfer to a tertiary care facility as the thickening at the GE junction may be the site of pneumoperitoneum and we do not have thoracic surgery for any assistance if needed. Discussed this with the patient as well as Dr. Viveros. Patient and his were agreeable with plan. Yessenia Suh M.D. Pager: [phone] [facility] [address] [place] [address], [facility], [address] [place] [address] Office: [phone]
[2017-12-15 17:44] VITALS: BP 123/75; PULSE 90; RESP 16; TEMP 36.9; O2SAT 98
--- NOTE | 2017-12-15 18:08 | PCM.DC.SUM ---
Discharge Date and Diagnosis - Problem List Patient Problems: Active and Suspected Problems COPD (chronic obstructive pulmonary disease) (Suspected) Pneumonia (Acute) COPD exacerbation (Acute) Date of Admission: 12/13/17 Date of Discharge: 12/15/17 - Primary Discharge Diagnosis Active and Suspected Problems CAP LLL COPD (chronic obstructive pulmonary disease) (Suspected) Pneumoperitoneum Hypokalemia Hyponatremia - Secondary Discharge Diagnosis Chronic Problems Chewing tobacco use (Chronic) Possible COPD with flattened diaphragms and hyperexpansion Hospital Course and Treatment Imaging Results: Clinical Impression(s) from Imaging Studies Chest X-Ray 12/13/17 16:50 IMPRESSION: COPD with mild fibrosis. Infiltrates in the lower left lung. Electronically Signed: En Serrano MD at 17:42 EDT , Service support , Abdomen/Pelvis CT 12/13/17 18:05 IMPRESSION: Left lower lobe infiltrate. Enlarged left adrenal gland. Neoplasm not excluded. Suggest MRI with contrast and out of phase imaging. Bilateral nonobstructing renal stones. Moderate to marked fecal retention. Electronically Signed: En Serrano MD at 18:58 EDT , Service support , Abdomen MRI 12/15/17 05:55 IMPRESSION: Left adrenal mass with decreased signal on out of phase sequences consistent with adenoma Pneumoperitoneum with bowel perforation versus recent surgery. Left lower lung airspace consolidation. N.B. : The above information has been verbally conveyed by Bang Garza MD to In[facility] Eric[facility]- In-Patient RN, on 12/15/2017 14:55:16 (ET). Electronically Signed: Bang Garza MD at 14:27 EDT , Service support , N.B. : The above information has been verbally conveyed by Bang Garza MD to In[facility] Eric[facility]- In-Patient RN, on 12/15/2017 14:55:16 (ET). ADDENDUM: 12/15/17 1504 Microbiology Past 72 Hours 12/13/17 21:30 Gram Stain - Final Sputum, Expectorated/Coughed Respiratory Culture - Preliminary Appears to be normal respiratory satinder. Further studies to follow. 12/13/17 23:05 Respiratory Panel (PCR) - Final Mucosa - Nasopharyngeal 12/13/17 23:50 Legionella Antigen - Final Urine, Clean Catch 12/13/17 23:50 Streptococcus pneumoniae Antigen (M - Final Urine, Clean Catch 12/13/17 17:00 Influenza Types A,B Direct FA ([facility]) - Final Mucosa - Nose Laboratory Tests Past 24 Hrs 12/15/17 12/15/17 05:18 05:18 WBC 13.2 H RBC 3.58 L Hgb 11.4 L Hct 33.5 L MCV 93.6 MCH 31.8 MCHC 34.0 RDW 13.9 RDW Differential 45.7 H Plt Count 395 MPV 9.1 Sodium 138 Potassium 3.4 L Chloride 105 Carbon Dioxide 28.0 Anion Gap 5 BUN 10 Creatinine 0.71 Estim Creat Clear Calc 69.25 Est GFR (MDRD) Af Amer 142 Est GFR (MDRD) Non-Af 117 BUN/Creatinine Ratio 14.0 Glucose [address] Yessenia Suh - General surgery Operations: None Procedures: None Summary of Care Provided: Patient is a 67-year-old male with no significant past medical history other than chewing tobacco dependence who presented to the emergency room at [facility] on 12/13/2017 complaining of weakness, shortness of breath and cough. 10-14 days prior to presentation to the emergency room he developed sore throat, nonproductive cough, malaise and progressively worsening weakness. He then developed fevers, chills and nausea with no emesis. He also had abdominal discomfort but, his tells me that this is an ongoing problem. No sick contacts. Vital signs at presentation to the emergency room were temperature 98.2, heart rate 70-80s, blood pressure 119/67, respiratory rate 16 and he was 94% saturated on room air. White blood cell count was 9.1 and the hemoglobin and platelets were normal. Sodium was low at 132 and the potassium was low at 3.4. AST and ALT were mildly increased at 62 and 77 respectively. Troponin was less than 0.02. Lactic acid was 1.1. Lipase was within normal limits. UA had 0-5 WBCs with no bacteria. Chest x-ray showed left lower lobe pneumonia and hyperexpansion. CT scan of the abdomen and pelvis showed an enlarged left adrenal gland, bilateral nonobstructing renal stones, diverticulosis and moderate to marked fecal retention. Legionella and streptococcal antigens in the urine were negative. Influenza swab was negative. He was admitted to the hospital and placed on Rocephin and azithromycin for community-acquired pneumonia. Potassium was supplemented and he was started on IV fluids to hydrate. Aerosols and Mucinex were ordered. Respiratory panel was negative. Blood cultures are pending but are negative to date. On 12/14 he told me his appetite was better and he had better color in his face. His abdomen was diffusely tender to palpation with no guarding, no masses and normal BS's. The BS's were diminished throughout. He was given MOM for large amount of stool in the abdomen. During the night of 12/14-12/15 the abdominal pain became severe and was worst in the lower abdomen. He told me that he had chills. He felt nauseated and felt as though he might vomit but didn't. Examination of the Abdomen in the AM revealed a soft, ND abdomen but he had voluntary guarding with palpation and that was new. Bowel sounds were diminished. He was not coughing and denied shortness of breath. Auscultation of the lungs revealed consolidating breath sounds in the left base. He was sent to radiology for an MRI of the abdomen to evaluate the left adrenal gland and also to evaluate for any developing pathology in the abdomen. A CT scan of the chest was also ordered because I found it unusual that he was afebrile with a normal white blood cell count and differential on 12/14 and no significant cough but had an infiltrate in the left base. He has been a longtime user of chewing tobacco and I was worried about a postobstructive pneumonia. He refused a CT scan of the chest but had the MRI the MRI showed large pneumoperitoneum, loose since the CT scan on 12/13/17. There was consolidation in the left lower lung. The liver was normal. There were surgical clips in the gallbladder fossa consistent with prior cholecystectomy. Spleen and pancreas were normal. The well-circumscribed round mass in the left adrenal gland was consistent with an adenoma. There was wall thickening at the gastroesophageal junction within normal small intestine and normal colon. There was nonvisualization of the appendix. Dr. Suh was consulted from general surgery and at the time she examined him in the afternoon he did have rebound tenderness. Because of the wall thickening in the area of the gastroesophageal junction she felt that there may be communication with the chest cavity and did not feel comfortable operating him at [facility] since we do not have a thoracic surgeon. I was in contact with the [facility] and spoke with Dr. Denis and she accepted Mr. Adam for transfer. Rocephin and Azithromycin were discontinued and he was given 4.5 GM of Zosyn prior to transfer. the patient and his were agreeable to transfer. We have had discs of the initial CT scan and the MRI made and will transfer with the patient. He was made NPO prior to Dr. Suh consulted in anticipation of surgery. This note was generated with [employer] dictation software. It may contain incorrect words, spelling, and punctuation that were not noted in checking the note before signing. Home Medications: Medications to take at Discharge NK [NK] 12/13/17 Primary Care Physician: Care Physician,No Primary [Primary Care Provider] - Disposition: [facility] - dr. Denis accepting Minutes spent on discharge:: 55 Patient Condition:: Guarded Medical Necessity - Tobacco Use Smoking Status: Never smoker Tobacco Use: Chew, - - Former chew tobacco use, quit 2006. Meaningful Use Info Meaningful Use Diagnoses (Choose all that apply): None applicable Code Visit Inpatient E&M: 14092 Disch Hosp
--- NOTE | 2017-12-15 18:29 | DS.PCM_ITS ---
Discharge Date and Diagnosis - Problem List Patient Problems: Active and Suspected Problems COPD (chronic obstructive pulmonary disease) (Suspected) Pneumonia (Acute) COPD exacerbation (Acute) Date of Admission: 12/13/17 Date of Discharge: 12/15/17 - Primary Discharge Diagnosis Active and Suspected Problems CAP LLL COPD (chronic obstructive pulmonary disease) (Suspected) Pneumoperitoneum Hypokalemia Hyponatremia - Secondary Discharge Diagnosis Chronic Problems Chewing tobacco use (Chronic) Possible COPD with flattened diaphragms and hyperexpansion Hospital Course and Treatment Imaging Results: Clinical Impression(s) from Imaging Studies Chest X-Ray 12/13/17 16:50 IMPRESSION: COPD with mild fibrosis. Infiltrates in the lower left lung. Electronically Signed: En Serrano MD at 17:42 EDT , Service support , Abdomen/Pelvis CT 12/13/17 18:05 IMPRESSION: Left lower lobe infiltrate. Enlarged left adrenal gland. Neoplasm not excluded. Suggest MRI with contrast and out of phase imaging. Bilateral nonobstructing renal stones. Moderate to marked fecal retention. Electronically Signed: En Serrano MD at 18:58 EDT , Service support , Abdomen MRI 12/15/17 05:55 IMPRESSION: Left adrenal mass with decreased signal on out of phase sequences consistent with adenoma Pneumoperitoneum with bowel perforation versus recent surgery. Left lower lung airspace consolidation. N.B. : The above information has been verbally conveyed by Bang Garza MD to [facility]- In-Patient RN, on 12/15/2017 14:55:16 (ET). Electronically Signed: Bang Garza MD at 14:27 EDT , Service support , N.B. : The above information has been verbally conveyed by Bang Garza MD to [facility]- In-Patient RN, on 12/15/2017 14:55:16 (ET). ADDENDUM: 12/15/17 1504 Microbiology Past 72 Hours 12/13/17 21:30 Gram Stain - Final Sputum, Expectorated/Coughed Respiratory Culture - Preliminary Appears to be normal respiratory satinder. Further studies to follow. 12/13/17 23:05 Respiratory Panel (PCR) - Final Mucosa - Nasopharyngeal 12/13/17 23:50 Legionella Antigen - Final Urine, Clean Catch 12/13/17 23:50 Streptococcus pneumoniae Antigen (M - Final Urine, Clean Catch 12/13/17 17:00 Influenza Types A,B Direct FA (AMENA) - Final Mucosa - Nose Laboratory Tests Past 24 Hrs 12/15/17 12/15/17 05:18 05:18 WBC 13.2 H RBC 3.58 L Hgb 11.4 L Hct 33.5 L MCV 93.6 MCH 31.8 MCHC 34.0 RDW 13.9 RDW Differential 45.7 H Plt Count 395 MPV 9.1 Sodium 138 Potassium 3.4 L Chloride 105 Carbon Dioxide 28.0 Anion Gap 5 BUN 10 Creatinine 0.71 Estim Creat Clear Calc 69.25 Est GFR (MDRD) Af Amer 142 Est GFR (MDRD) Non-Af 117 BUN/Creatinine Ratio 14.0 Glucose [address] Calcium 7.[address] Yessenia Suh - General surgery Operations: None Procedures: None Summary of Care Provided: Patient is a 67-year-old male with no significant past medical history other than chewing tobacco dependence who presented to the emergency room at [facility] on 12/13/2017 complaining of weakness, shortness of breath and cough. 10-14 days prior to presentation to the emergency room he developed sore throat, nonproductive cough, malaise and progressively worsening weakness. He then developed fevers, chills and nausea with no emesis. He also had abdominal discomfort but, his tells me that this is an ongoing problem. No sick contacts. Vital signs at presentation to the emergency room were temperature 98.2, heart rate 70-80s, blood pressure 119/67, respiratory rate 16 and he was 94% saturated on room air. White blood cell count was 9.1 and the hemoglobin and platelets were normal. Sodium was low at 132 and the potassium was low at 3.4. AST and ALT were mildly increased at 62 and 77 respectively. Troponin was less than 0.02. Lactic acid was 1.1. Lipase was within normal limits. UA had 0-5 WBCs with no bacteria. Chest x-ray showed left lower lobe pneumonia and hyperexpansion. CT scan of the abdomen and pelvis showed an enlarged left adrenal gland, bilateral nonobstructing renal stones, diverticulosis and moderate to marked fecal retention. Legionella and streptococcal antigens in the urine were negative. Influenza swab was negative. He was admitted to the hospital and placed on Rocephin and azithromycin for community-acquired pneumonia. Potassium was supplemented and he was started on IV fluids to hydrate. Aerosols and Mucinex were ordered. Respiratory panel was negative. Blood cultures are pending but are negative to date. On 12/14 he told me his appetite was better and he had better color in his face. His abdomen was diffusely tender to palpation with no guarding, no masses and normal BS's. The BS's were diminished throughout. He was given MOM for large amount of stool in the abdomen. During the night of 12/14-12/15 the abdominal pain became severe and was worst in the lower abdomen. He told me that he had chills. He felt nauseated and felt as though he might vomit but didn't. Examination of the Abdomen in the AM revealed a soft, ND abdomen but he had voluntary guarding with palpation and that was new. Bowel sounds were diminished. He was not coughing and denied shortness of breath. Auscultation of the lungs revealed consolidating breath sounds in the left base. He was sent to radiology for an MRI of the abdomen to evaluate the left adrenal gland and also to evaluate for any developing pathology in the abdomen. A CT scan of the chest was also ordered because I found it unusual that he was afebrile with a normal white blood cell count and differential on 12/14 and no significant cough but had an infiltrate in the left base. He has been a longtime user of chewing tobacco and I was worried about a postobstructive pneumonia. He refused a CT scan of the chest but had the MRI the MRI showed large pneumoperitoneum, loose since the CT scan on 12/13/17. There was consolidation in the left lower lung. The liver was normal. There were surgical clips in the gallbladder fossa consistent with prior cholecystectomy. Spleen and pancreas were normal. The well-circumscribed round mass in the left adrenal gland was consistent with an adenoma. There was wall thickening at the gastroesophageal junction within normal small intestine and normal colon. There was nonvisualization of the appendix. Dr. Suh was consulted from general surgery and at the time she examined him in the afternoon he did have rebound tenderness. Because of the wall thickening in the area of the gastroesophageal junction she felt that there may be communication with the chest cavity and did not feel comfortable operating him at [facility] since we do not have a thoracic surgeon. I was in contact with the [facility] and spoke with Dr. Denis and she accepted Mr. Adam for transfer. Rocephin and Azithromycin were discontinued and he was given 4.5 GM of Zosyn prior to transfer. the patient and his were agreeable to transfer. We have had discs of the initial CT scan and the MRI made and will transfer with the patient. He was made NPO prior to Dr. Suh consulted in anticipation of surgery. This note was generated with [employer] dictation software. It may contain incorrect words, spelling, and punctuation that were not noted in checking the note before signing. Home Medications: Medications to take at Discharge NK [NK] 12/13/17 Primary Care Physician: Care Physician,No Primary [Primary Care Provider] - Disposition: [facility] - dr. Denis accepting Minutes spent on discharge:: 55 Patient Condition:: Guarded Medical Necessity - Tobacco Use Smoking Status: Never smoker Tobacco Use: Chew, - - Former chew tobacco use, quit 2006. Meaningful Use Info Meaningful Use Diagnoses (Choose all that apply): None applicable Code Visit Inpatient E&M: 41110 Disch Hosp
--- NOTE | 2017-12-15 19:43 | NURSING ---
REPORT CALLED TO [facility] NURSE MILLER AND RESULTS OF TESTS GIVEN. TRANSPORTATION ALSO CALLED.
== END 2017-12-15 21:30 | disposition short-term general hospital (02) | DRG 194 ==
LOC: ED 16:57 → MS3 20:26
PROVIDERS: Admitting Provider Family Medicine; Emergency Provider Emergency Medicine; Visit Provider Internal Medicine
DX: J18.9 Pneumonia, unspecified organism (principal); E87.1 Hypo-osmolality and hyponatremia; K66.8 Other specified disorders of peritoneum; Z87.891 Personal history of nicotine dependence; E87.6 Hypokalemia; E86.0 Dehydration; K59.00 Constipation, unspecified; J44.9 Chronic obstructive pulmonary disease, unspecified
CPT/HCPCS: 36415; 71046; 74177; 74183; 80048; 80053; 81001; 83605; 83690; 83735; 84484; 85025; 85027; 85610; 85730; 87040; 87070; 87205; 87449; 87633; 87804; 93005; 94640; 94668; 99285; A9585; J7030; Q9967; A4216; J0696; J2405